=== PATIENT | male | born 1950 | race Caucasian/White ===

== ENCOUNTER 2018-03-17 09:28 | Day surgery (SDC) | payer MEDICARE, OTHER ==
[2018-03-05 13:18] VITALS: BMI 27.7
[2018-03-17] MEDS: CYCLOPENTOLATE HCL 1% OPHTH SOLN 2 ML BOTTLE ONE ×5 (10:40→11:00)
[2018-03-17] MEDS: TROPICAMIDE 1% OPHTH SOLN 15 ML BOTTLE ONE ×5 (10:40→11:00)
[2018-03-17] MEDS: KETOROLAC TROMETHAMINE 0.5% EYE DROP 1 DROP DROPS ONE ×5 (10:40→11:00)
[2018-03-17] MEDS: PHENYLEPHRINE 2.5% OPHTH SOLN 15 ML BOTTLE ONE ×5 (10:40→11:00)
[2018-03-17] MEDS: GENTAMICIN SULFATE 0.3% OPHTHALMIC (EYE DROPS) 5ML BOTTLE ONE ×2 (10:40→11:00)
[2018-03-17] MEDS ORDERED: MIDAZOLAM HCL 2 MG/2 ML SINGLE DOSE VIAL ONE (12:26)
[2018-03-17] MEDS ORDERED: ACETAMINOPHEN 325 MG TABLET (FP) PO PRN (12:27)
[2018-03-17] MEDS ORDERED: LIDOCAINE HCL/PF 2% SDV 5ML VIAL ONE (12:30)
[2018-03-17] MEDS ORDERED: EPI-SHUGARCAINE (EPINEPHRINE 0.025% & LIDOCAINE-PF 0.75%) 4ML ONE (12:30)
[2018-03-17] MEDS ORDERED: BUPIVACAINE HCL/PF 0.5% (5MG/ML) 10 ML VIAL ONE (12:31)
[2018-03-17] MEDS ORDERED: LIDOCAINE HCL 2% JELLY 10 ML CARTRIDGE ONE (12:31)
[2018-03-17] MEDS ORDERED: ACETYLCHOLINE 1:100 INTRA-OCUL 20 MG/2 ML KIT ONE (12:31)
[2018-03-17 14:30] VITALS: TEMP 98.5
[2018-03-17 14:53] VITALS: BP 138/86; PULSE 72
--- NOTE | 2018-03-17 14:54 | OP ---
DATE OF OPERATION: 03/17/2018 PROCEDURE: Planned extracapsular cataract extraction phacoemulsification, insertion of posterior chamber lens implant, right eye. SURGEON: Jan Vilchis MD SUPERVISOR WIRE ROPE FABRICATION SURGEON: Jan Vilchis MD ANESTHESIA: Local with standby. NURSE RN CVOR: SERGIO Barrgia ANESTHESIOLOGIST: Gricelda Ruff MD COMPLICATIONS: None. PREOPERATIVE DIAGNOSIS: Cataract, right eye, mature. POSTOPERATIVE DIAGNOSIS: Cataract, right eye, mature. DESCRIPTION OF PROCEDURE: After successful peribulbar anesthesia was given to the right eye in the operating room, the patient was prepped and draped in the usual manner to expose the right eye. Lid speculum was inserted. The microscope was into position over the right eye, and Tegretol strips and a speculum were inserted. Superior fornix-based flap was then fashioned for 12 mm and Ailyn scissors and 0.12 forceps, and hemostasis achieved with electrocautery. The limbal grill was fashioned for 3 mm with a crescent blade and dissected anterior into clear cornea. Then a 3-mm blade was used to enter the anterior chamber. Then under Viscoat, a 360-degree anterior capsulotomy was performed and the leaflet removed from the eye. Phacoemulsification of the entire nucleus was then done in approximately 2 minutes time without complication followed by irrigation of all cortical material leaving posterior capsule for the most part intact except for a small posterior capsular opening between 4 o'clock and 6 o'clock, but it was determined there was enough capsular support there to place a PC lens implant. The Provisc was injected in the posterior chamber to deep into the posterior capsule, and the implant was inspected carefully with the microscope and found to be free of defects, debris, and flaws. It was folded, placed in the Provisc-filled cartridge, and the cartridge was placed in the injector and the implant injected into the eye such that the inferior haptic was in inferior capsular bag and the superior haptic was in the superior capsular bag and it was fully supported and centered. There was no vitreous in the posterior chamber or the anterior chamber. There was gentle irrigation and aspiration of the anterior chamber Viscoat and Provisc, and this was replaced with Miochol, Miostat, and BSS. The wound was closed with a single interrupted 2-0 Ethilon suture and tested for leaks, and none was found. The conjunctiva and Tenon flap were reapproximated. At this point in time, the implant was fixated in the capsular bag centrally located with a round pupil, intact posterior capsule, and a red reflex present. The topical Betoptic ophthalmic gas and Maxitrol ophthalmic solution were placed as was bacitracin and polymyxin B ophthalmic ointment. The Tegaderm strips and lid speculum were removed from the eye. The lids were closed and a patch and shield placed on it. The patient was then discharged from the operating room to the recovery room in good condition having tolerated the procedure well. JAN VILCHIS M.D. LEROY/[id number]
== END 2018-03-17 15:00 | disposition home or self-care (01) ==
LOC: FASU 09:28
PROVIDERS: ATTEND Ophthalmology
PROC: 08RJ3JZ Replacement of Right Lens with Synthetic Substitute, Percutaneous Approach (ICD-10-PCS; principal; 2018-03-17 13:15)
DX: H25.89 Other age-related cataract (principal)
CPT/HCPCS: 82962

== ENCOUNTER 2018-06-09 09:26 | Day surgery (SDC) | payer MEDICARE ==
[2018-06-04 14:23] VITALS: BMI 27.7
[2018-06-09] MEDS: CYCLOPENTOLATE HCL 1% OPHTH SOLN 2 ML BOTTLE ONE ×5 (10:20→10:40)
[2018-06-09] MEDS: OFLOXACIN 0.3% OPHTHALMIC SOLUTION 5 ML BOTTLE ONE ×2 (10:20→10:40)
[2018-06-09] MEDS: KETOROLAC TROMETHAMINE 0.5% EYE DROP 1 DROP DROPS ONE ×5 (10:20→10:40)
[2018-06-09] MEDS: TROPICAMIDE 1% OPHTH SOLN 15 ML BOTTLE ONE ×5 (10:20→10:40)
[2018-06-09] MEDS: PHENYLEPHRINE 2.5% OPHTH SOLN 15 ML BOTTLE ONE ×5 (10:20→10:40)
[2018-06-09] MEDS ORDERED: EPI-SHUGARCAINE (EPINEPHRINE 0.025% & LIDOCAINE-PF 0.75%) 4ML ONE (11:07)
[2018-06-09] MEDS ORDERED: LIDOCAINE HCL/PF 2% SDV 5ML VIAL ONE ×2 (11:07→12:27)
[2018-06-09] MEDS ORDERED: BUPIVACAINE HCL/PF 0.5% (5MG/ML) 10 ML VIAL ONE (11:07)
[2018-06-09] MEDS ORDERED: ACETYLCHOLINE 1:100 INTRA-OCUL 20 MG/2 ML KIT ONE (11:07)
[2018-06-09] MEDS ORDERED: LIDOCAINE HCL 2% JELLY 10 ML CARTRIDGE ONE (11:07)
[2018-06-09] MEDS ORDERED: ACETAMINOPHEN 325 MG TABLET (FP) PO PRN (11:10)
[2018-06-09] MEDS ORDERED: PROPOFOL 20 ML ONE (12:18)
[2018-06-09 13:44] VITALS: PULSE 74; TEMP 98
--- NOTE | 2018-06-09 14:11 | OP ---
DATE OF OPERATION: 06/09/2018 TITLE OF PROCEDURE: Planned extracapsular cataract extraction and phacoemulsification and insertion of posterior chamber lens implant, left eye. SURGEON: Jan Dominguez MD ANALYTICAL LABORATORY TECHNICIAN SURGEON: Jan Dominguez MD ANESTHESIA: Local, standby. FINANCIAL SOLUTIONS ADVISOR: Gabo Nieves MD COMPLICATIONS: None. PREOPERATIVE DIAGNOSIS: Cataract, left eye. POSTOPERATIVE DIAGNOSIS: Cataract, left eye. FINDINGS AT PROCEDURE: After successful peribulbar anesthesia was given to the left eye, the patient was prepped and draped in the usual manner to expose the left eye. Tegaderm strips and a lid speculum were inserted in the left eye, and the operating microscope brought into position over the left eye. A superior fornix-based flap was then fashioned for 12 mm using Ailyn scissors and 0.12 forceps. Hemostasis achieved with wet field cautery. Limbal groove was then fashioned for 3 mm with a crescent blade and dissecting anterior into clear cornea. Then, a 3-mm blade was used to enter the anterior chamber. Viscoat 360-degree anterior capsulotomy was performed, and the leaflet removed from the eye. Phacoemulsification was done in probably 2 minutes' time and then followed by irrigation and aspiration of all cortical material, leaving an intact posterior capsule and red reflex present. It should be noted that Shugarcaine was injected prior to the beginning of the anterior capsulotomy which was done under Viscoat with a capsulotomy needle for 360 degrees without complication, and as I mentioned, this was followed by phacoemulsification of the entire nucleus in approximately 2 minutes' time, followed by the irrigation and aspiration of all cortical material, all without complications, leaving the entire posterior capsule and a red reflex present. Provisc was injected in the posterior chamber to deepen the posterior capsule, and the implant was then inspected through the microscope, found to be free of defects, debris, and flaws. It was then folded, placed in the Provisc filled cartridge, the cartridge placed in the injector. Then, the implant was injected into the eye such that the inferior haptic was in the inferior capsular bag and the superior haptic in the superior capsular bag. Rotated in a horizontal position with a Sinskey hook. The Provisc was aspirated out, replaced with Miochol and Miostat and BSS. The wound was closed with a single interrupted 2-0 Ethilon suture and tested for leakage, and none was found. The conjunctival tenon flap was reapproximated. At this point, the implant was fixated in the capsular bag, centrally located with a round pupil and intact posterior capsule and red reflex present. Topical Betoptic S and Maxitrol ophthalmic suspensions were placed as was bacitracin, polymyxin B ophthalmic ointment. The Tegaderm strips and lid speculum were removed from the lids. The lids were closed and a patch and shield placed on the eye, and the patient was then discharged from the operating room to the recovery room in good condition, having tolerated the procedure well. Omero ELY/[id number]
[2018-06-09 14:15] VITALS: BP 128/75
== END 2018-06-09 14:05 | disposition home or self-care (01) ==
LOC: FASU 09:26
PROVIDERS: ATTEND Ophthalmology
PROC: 08RK3JZ Replacement of Left Lens with Synthetic Substitute, Percutaneous Approach (ICD-10-PCS; principal; 2018-06-09 12:35)
DX: H26.9 Unspecified cataract (principal)
CPT/HCPCS: 82962